=== PATIENT | female | born 1930 | race Caucasian/White ===

== ENCOUNTER → 2016-09-17 | Outpatient (CLI) | payer MEDICARE, BC ==
[~2016-09-17] MED LIST: ALBUTEROL17 G1 IH; ALPRAZOLAM PO; ASPIRIN PO; BENTYL10 MG; CALAN; CERTAGEN PO; COZAAR; DARVOCET-N 1001 TA2 PO; DARVOCET-N 1001 TAB PO; FLEXERIL PO; GARLIC PO; HYZAAR 100-25 T1 TAB PO; LASIX PO; LEXAPRO PO; LIPITOR PO; NAPROSYN500 MG PO; PAXIL; PAXIL PO; PRAVASTATIN SOD40 MG PO; PREDNISONE PO; PRILOSEC PO; REGLAN5 MG; SIMVASTATIN40 MG PO; SYNTHROID PO; ZITHROMAX1 G/PKT PO; [UNRECOGNIZED DRUG - OTHER] PO
--- NOTE | ~2016-09-17 | US37 ---
[facility] A Service of [facility] & [facility] RADIOLOGY TEXT RESULTS PATIENT: DANIELA SULLIVAN LOCATION: CNIV : 31 UNIT #: [id number] AGE: [address]: Cordell Burgos MD SEX: F ORDER DR: [id number] [facility] [address] [place], [place] [address] [id number] O MR#: [id number] Acc #: [id number] NAME: DANIELA SULLIVAN : 1930 SEX: F STUDY DATE/TIME: 09/17/2016 10:29 UNIT: CNIV ROOM: STUDY DESCRIPTION: US Carotid W/Doppler Bilateral Attending Physician: Cordell Burgos M.D. Referring Physician: Cordell Burgos M.D. Ordering Physician: Cordell Burgos M.D. Primary Care Physician: Bhavesh Dacosta M.D. MEDICAL IMAGING REPORT This report is preliminary unless electronic signature is present EXAM Bilateral carotid duplex, 09/17/2016. HISTORY Bilateral carotid artery stenosis. FINDINGS There is patent flow seen throughout the right common carotid, internal carotid, and external carotid arteries. There is mild diffuse atherosclerosis noted throughout the common carotid, carotid bifurcation, and internal carotid as well as external carotid arteries. It is homogeneous and echogenic. The right common carotid artery peak velocity is 84 cm/sec. The right internal carotid artery peak systolic over end diastolic velocities are: Proximal 72/17 cm/sec, mid 82/20 cm/sec, distal 79/17 cm/sec. The right external carotid artery peak velocity is 157 cm/sec, and vertebral artery 45 cm/sec. The right ICA:CCA ratio is 0.9. There is patent flow seen throughout the left common carotid, internal carotid, and external carotid arteries. There is diffuse, homogeneous, regular-appearing plaque seen in the common carotid artery. At the carotid bifurcation, there is homogeneous, irregular, echogenic plaque seen, extending into the internal carotid artery and external carotid artery. The left internal carotid artery peak systolic over end diastolic velocities are: proximal 76/20 cm/sec, mid 113/23 cm/sec, and distal 68/13 cm/sec. The left external carotid artery peak velocity is 201 cm/sec, and vertebral artery 45 cm/sec. The left ICA:CCA ratio is 1.3. IMPRESSION 1. There is mild atherosclerosis of the right carotid artery, which is not hemodynamically significant by duplex criteria (less than 50%). 2. The left carotid artery has mild atherosclerosis, which is not hemodynamically significant by duplex criteria (less than 50%). [facility] A Service of [facility] RADIOLOGY TEXT RESULTS PATIENT: DANIELA SULLIVAN LOCATION: CNIV : 31 UNIT #: [id number] AGE: [address]: Cordell Burgos MD SEX: F ORDER DR: 3. Mild to moderate grade stenosis of the left external carotid artery. 4. Vertebral flow is antegrade bilaterally. 5. No significant changes from the 06/2015 study. Dictated by... Tin Dexter M.D. THIS IS AN ELECTRONICALLY VERIFIED REPORT Tin Dexter M.D. at 09/21/2016 8:43 AM Radha TD: 09/17/2016 12:36 JOB #: [id number] MEDICAL IMAGING REPORT Page 1 of 1 COPY
== END | disposition home or self-care (01) ==
LOC: CNIV 10:02
DX: I77.9 Disorder of arteries and arterioles, unspecified (principal); I65.23 Occlusion and stenosis of bilateral carotid arteries
CPT/HCPCS: 93880